=== PATIENT | male | born 1985 ===

== ENCOUNTER 2021-05-06 11:18 | Emergency (ER) | payer OTHER ==
[~2021-05-06] VITALS: Ht 188 cm; Wt 81.0 kg
[2021-05-06] MEDS ORDERED: ketorolac tromethamine 15mg/ml inj. IM ONE (12:35)
[2021-05-06 12:37] VITALS: BP 114/88
[2021-05-06] MEDS ORDERED: ONDA4TAB6 PO (13:20)
[2021-05-06] MEDS ORDERED: HYDR-3965 PO (13:20)
== END 2021-05-06 14:32 | disposition home or self-care (01) ==
LOC: ER 11:19
DX: S92.325A Nondisplaced fracture of second metatarsal bone, left foot, initial encounter for closed fracture (principal); W19.XXXA Unspecified fall, initial encounter; Y93.89 Activity, other specified; Y92.89 Other specified places as the place of occurrence of the external cause; Y99.8 Other external cause status
CPT/HCPCS: 73610; 73630; 96372; 99284; J1885